=== PATIENT | female | born 1995 | race Hispanic/Latino ===

== ENCOUNTER 2018-04-01 15:52 | Emergency (ER) | payer OTHER ==
[2018-04-01 16:56] LABS: BASOPHILS % (AUTO) 0.3 % (0.0-5.0); EOSINOPHILS % (AUTO) 0.3 % (0.0-8.0); HEMATOCRIT 39.5 % (36-48); LYMPHOCYTES % (AUTO) 10.5 % (21.0-51.0); MEAN CORPUSCULAR VOLUME 94.3 fL (79-99); MONOCYTES % (AUTO) 2.2 % (3.0-13.0); NEUTROPHILS % (AUTO) 86.7 % (40.0-77.0); PLATELET COUNT (AUTO) 239 K/uL (130-400); RED BLOOD CELL COUNT(AUTO) 4.19 MIL/uL (4.00-5.50); RED CELL DISTRIBUTION WIDTH 12.6 % (11.0-15.5); WHITE BLOOD COUNT (AUTO) 9.7 K/uL (4.8-10.8)
[2018-04-01 17:06] LABS: CREATININE 0.5 mg/dL (0.5-1.5)
[2018-04-01 17:10] LABS: COLOR,URINE Yellow (YELLOW); PROTEIN,URINE Negative (NEGATIVE)
[2018-04-01] MEDS ORDERED: KETOROLAC TROMETHAMINE 30MG/ML ONE (17:10)
[2018-04-01] MEDS ORDERED: ONDANSETRON HCL 4 MG/2 ML VIAL ONE (17:10)
[2018-04-01 17:11] LABS: ALBUMIN 3.6 g/dL (3.5-5.0); BILIRUBIN,TOTAL 0.8 mg/dL (0.2-1.0); BILIRUBIN,URINE Negative (NEGATIVE); GLUCOSE, URINE (UA) Negative (NEGATIVE); KETONES,URINE Trace mg/dL (NEGATIVE); LEUKOCYTE ESTERASE ,URINE Negative (NEGATIVE); NITRATE,URINE Negative (NEGATIVE); OCCULT BLOOD,URINE Moderate (NEGATIVE); TOTAL PROTEIN, SERUM 8.4 g/dL (6.0-8.3)
[2018-04-01 17:13] LABS: APPEARANCE,URINE CLOUDY (CLEAR)
[2018-04-01 17:14] LABS: HCG,QUAL RESULT NEGATIVE (NEGATIVE)
[2018-04-01 17:27] LABS: BACTERIA,URINE Few /HPF (None Seen); SQUAMOUS EPITHELIAL CELL,UR Moderate /HPF (0-2); WBC,URINE 0-1 /HPF (0-1); YEAST,URINE BUDDING Rare /HPF (None Seen)
== END 2018-04-01 18:28 | disposition home or self-care (01) ==
LOC: EDH 15:52
DX: K76.0 Fatty (change of) liver, not elsewhere classified (principal); R10.11 Right upper quadrant pain
CPT/HCPCS: 36415; 76705; 80053; 81001; 81025; 82150; 83690; 85025; 96374; 96375; 99285; J1885; J2405

== ENCOUNTER 2018-08-17 20:51 | Emergency (ER) | payer SELFPAY ==
[2018-08-17] MEDS ORDERED: ACETAMINOPHEN EXTRA STRENGTH 500 MG TABLET ONE (21:15)
[2018-08-17 21:56] LABS: RAPID GROUP A STREP NEGATIVE (NEGATIVE)
[2018-08-17] MEDS ORDERED: KETOROLAC TROMETHAMINE 60 MG/2 ML VIAL ONE (22:15)
== END 2018-08-17 22:30 | disposition home or self-care (01) ==
LOC: EDH 20:51
DX: J09.X2 Influenza due to identified novel influenza A virus with other respiratory manifestations (principal)
CPT/HCPCS: 81025; 87804 ×2; 87880; 96372; 99283; J1885

== ENCOUNTER 2020-05-21 11:14 | Emergency (ER) | payer SELFPAY ==
[2020-05-21] MEDS ORDERED: HYDROCODONE/ACETAMINOPHEN 10/325 MG TAB ONE (13:22)
== END 2020-05-21 14:27 | disposition home or self-care (01) ==
LOC: EDH 11:14
DX: S82.62XA Displaced fracture of lateral malleolus of left fibula, initial encounter for closed fracture (principal); X58.XXXA Exposure to other specified factors, initial encounter; Y93.89 Activity, other specified; Y92.89 Other specified places as the place of occurrence of the external cause; Y99.8 Other external cause status
CPT/HCPCS: 29515; 73610; 81025

== ENCOUNTER 2025-02-09 23:44 | Emergency (ER) | payer BC ==
[~2025-02-09] VITALS: Ht 157.5 cm; Wt 114.3 kg
--- NOTE | 2025-02-09 23:55 | ERN ---
ED Note History of Present Illness Stated Complaint: C/O RUQ PAIN ONSET 3-4 DAYS AGO Chief Complaint: Abdominal Pain Time Seen by MD: 23:46 Time Seen by Midlevel: 23:50 Dictation: 30 y/oFemale coming in with complaints of right upper quadrant pain for the last 2-3 weeks worsening in the last four days. Denies any fever, nausea and vomiting or diarrhea. Patient states pain is worse when he takes a deep breath. Allergies: Coded Allergies: No Known Drug Allergies (Unverified Allergy, Unknown, 05/21/20) Past Medical History Past Medical History: No Pertinent History Surgical History: None LMP: Feb 22, 2025 Review of System Dictation Constitutional: Negative for fever,chills, and weight loss Eyes: Negative for injury, pain,redness, and discharge ENT: Negative for injury,pain or swelling Cardiovascular: Negative for chest pain, palpitations, and edema Respiratory: Negative for shortness of breath, cough, and wheezing, Abdomen/GI: Complaining of right upper quadrant pain Back: Negative for injury and pain : Negative for injury, bleeding and discharge MS/Extremity: Negative for injury and deformity Skin: Negative for rash, and discoloration Neuro: Negative for headache, weakness, numbness, tingling, and seizure Psych: Negative for suicide ideation, homicidal ideation, and hallucinations Review of Systems: was completed Initial Vital Sign VS Vital Signs Date Time Temp Pulse Resp B/P (MAP) Pulse Ox O2 Delivery O2 Flow Rate FiO2 02/09/25 23:45 98.8 77 20 181/85 100 Room Air 02/10/25 00:08 0 21 Physical Exam Dictation General: awake, alert, NAD Head/Face: Normocephalic, atraumatic Eyes: PERRL, EOMI, vision at baseline ENT: oral cavity clear, TMs clear, no signs of infection Neck: Trachea midline, supple, no nuchal rigidity Cardiovascular: RRR, normal S1/S2, No MRGs, no JVD Respiratory: CTAB, no respiratory distress, No rales or wheezes Abdomen: Soft, tenderness on palpation to the right upper quadrant, non- distended, normal bowel sounds, no guarding or rebound. Skin: Warm, dry, normal turgor, no rash MS/Extremity: Pulses equal, no cyanosis, neurovascular intact, FROM Neuro: COAx4, GCS 15, strength 5/5, CN 2-12 intact, normal cerebellar exam, nor mal gait, Psych: Normal behavior, mood, and affect normal Results (Laboratory/Radiology) Laboratory/Radiology Laboratory Tests Test 02/10/25 00:00 White Blood Count 9.2 K/uL (4.8-10.8) Red Blood Count 4.28 MIL/uL (4.00-5.50) Hemoglobin 13.7 g/dL (12.0-16.0) Hematocrit 39.2 % (36-48) Mean Corpuscular Volume 91.6 fL (79-99) Mean Corpuscular Hemoglobin 32.0 pg (27.0-33.0) Mean Corpuscular Hemoglobin Concent 34.9 g/dL (32.0-36.0) Red Cell Distribution Width 12.3 % (11.0-15.5) Platelet Count 243 K/uL (130-400) Mean Platelet Volume 9.1 fL (7.5-10.5) Immature Granulocyte % (Auto) 0.2 % (0-1) Neutrophils (%) (Auto) 47.6 % (40.0-77.0) Lymphocytes (%) (Auto) 44.8 % (21.0-51.0) Monocytes (%) (Auto) 4.9 % (3.0-13.0) Eosinophils (%) (Auto) 2.2 % (0.0-8.0) Basophils (%) (Auto) 0.3 % (0.0-5.0) Neutrophils # (Auto) 4.4 K/uL (1.8-7.7) Lymphocytes # (Auto) 4.1 K/uL (1.0-4.8) Monocytes # (Auto) 0.5 K/uL (0.1-1.0) Eosinophils # (Auto) 0.20 K/uL (0.00-0.70) Basophils # (Auto) 0.03 K/uL (0.00-0.20) Absolute Immature Granulocyte (auto 0.02 K/uL (0-1) Nucleated Red Blood Cells 0.0 % (0.0-0.19) Sodium Level 139 mmol/L (136-145) Potassium Level 3.6 mmol/L (3.5-5.1) Chloride Level 101 mmol/L (101-111) Carbon Dioxide Level 32 mmol/L (21-32) Blood Urea Nitrogen 14 mg/dL (7-18) Creatinine 0.6 mg/dL (0.5-1.0) Glomerular Filtration Rate Calc 124 mL/min (>90) Random Glucose 95 mg/dL (70-105) Total Calcium 8.9 mg/dL (8.5-10.1) Total Bilirubin 0.2 mg/dL (0.2-1.0) Direct Bilirubin 0.1 mg/dL (0.0-0.3) Aspartate Amino Transf (AST/SGOT) 21 U/L (10-37) Alanine Aminotransferase (ALT/SGPT) 41 U/L (12-78) Alkaline Phosphatase 88 U/L (50-136) Total Protein 8.6 g/dL (6.0-8.3) H Albumin 3.9 g/dL (3.5-5.0) Lipase 37 U/L (16-77) Human Chorionic Gonadotropin, Quant 0 mIU/mL (0-5) Labs Reviewed?: Yes Ultrasound Comment: [address] [address] IMAGING REPORT Signed PATIENT: MEGAN TOLBERT MR#: [id number] : 1995 SEX: F AGE: 30 LOCATION: [facility] ORDER [id number] STATUS: [facility] REPORT#: [id number] SERVICE [id number] REASON: ruq pain ORDERING PHYSICIAN: PAU OLGUIN NP PROCEDURE: ABDRUQLTD - US ABDOMINAL RUQ\LTD EXAM: US Abdomen, Right Upper Quadrant. CLINICAL HISTORY: Right upper quadrant pain. TECHNIQUE: Right upper quadrant sonography performed with image documentation. The exam was somewhat limited as the patient was not NPO and unable to hold breath. COMPARISON: None provided. FINDINGS: LIVER: Measures approximately 17.1 cm. Increased echogenicity consistent with hepatic steatosis. No focal hepatic lesion identified. GALLBLADDER: The gallbladder wall measures approximately 2 mm. A possible tiny sand-like stone is noted. No wall thickening. COMMON BILE DUCT (CBD): Measures approximately 5 mm. Not dilated. PANCREAS: Visualized portions appear normal. Tail obscured by bowel gas. RIGHT KIDNEY: Measures 11.6 ??? 5.2 ??? 5.1 cm. Normal cortical thickness and echogenicity. No hydronephrosis, mass, or calculus. IMPRESSION: Hepatic steatosis. Gallbladder with a possible tiny sand-like stone. No wall thickening or biliary dilatation. Otherwise unremarkable right upper quadrant ultrasound. /[place] DICTATED BY: BLAKE COBB Jr., MD DATE: 02/10/25158 ELECTRONICALLY SIGNED BY: BLAKE COBB Jr., MD DATE: 02/10/25158 ED Course ED Course Orders Procedure Category Date Status Time Cbc With Differential LAB 02/09/25 Complete 23:49 Basic Metabolic Panel LAB 02/09/25 Complete 23:49 Lipase LAB 02/09/25 Complete 23:49 Us Abdominal Ruq\Ltd US 02/09/25 Resulted 23:49 Hepatic Function Panel LAB 02/09/25 Complete 23:49 0.9%Nacl 1000ml (Ns PHA 02/09/25 Complete 1000ml) 23:49 Ketorolac PHA 02/10/25 Complete Tromethamine 15mg/Ml 00:00 Ondansetron 4mg Inj PHA 02/10/25 Complete (Zofran 4mg Inj) 00:00 Famotidine 20mg Vial PHA 02/10/25 Complete (Pepcid 20mg Vial) 00:00 Hcg,Quantitative LAB 02/10/25 Complete 00:44 Chest 1vw RAD 02/10/25 Taken 00:52 Current Medications Medications (Trade) Dose Ordered Sig/Yessenia Route PRN Reason Start Time Stop Time Status Last Admin Dose Admin Famotidine (Pepcid 20mg Vial) 20 mg ONCE ONCE IV 02/10/25 00:00 02/10/25 00:02 DC 02/10/25 00:07 Ketorolac Tromethamine (toRADol) 15 mg ONCE ONCE IV 02/10/25 00:00 02/10/25 00:02 DC 02/10/25 00:07 Ondansetron HCl (zoFRAN 4MG INJ) 4 mg ONCE ONCE IVP 02/10/25 00:00 02/10/25 00:02 DC 02/10/25 00:07 Sodium Chloride 1,000 ml @ 1,000 mls/hr Q1H STAT IV 02/09/25 23:49 02/10/25 00:48 DC 02/10/25 00:08 Vital Signs Date Time Temp Pulse Resp B/P (MAP) Pulse Ox O2 Delivery O2 Flow Rate FiO2 02/10/25 00:08 98.6 72 18 155/94 99 Room Air* 0 21 02/09/25 23:45 98.8 77 20 181/85 100 Room Air Medical Decision Making MDM MDM: 30 y/oFemale coming in with complaints of right upper quadrant pain for the last 2-3 weeks worsening in the last four days. Denies any fever, nausea and vomiting or diarrhea. Patient states pain is worse when he takes a deep breath.CBC shows no leukocytosis, no anemia, no thrombocytopenia. Chemistry shows no electrolyte abnormality. No transaminitis. Lipase within normal range. Preliminary report for the ultrasound shows a gallbladder wall measuring 2 mm, mobile sandlike stone and a CBD of 5 mm. Chest x-ray shows no acute finding. Discussed with the patient findings, educated in his might be related to gallbladder sludge, stones. Needs to avoid any spicy, greasy foods and follow up with PCP outpatient at this time . Differential diagnosis: Acute otitis, gastritis, gallstones, cholecystitis Rationale: Tests considered and ordered secondary to shared decision making include: Previous outside records reviewed: Old ER visits. Risk of complication and/or morbidity or mortality of patient management: None Medications-Per medication reconciliation Need for hospitalization: Patient does not meet criteria for hospitalization. Need for emergency major/minor surgery: No There are no social concerns with this patient. Prescription drug management Prescriptions will include symptomatic care Patient's prior external medical records from other ER visits were reviewed by me as indicated. Prior testing and results from previous visits were reviewed. Prior tests were taken into account with medical decision making and resource utilization, independent historian/historians were used to obtain complete medical history. I independently interpreted the test that were performed, results were reviewed by me and considered findings on radiology if ordered. Medical management and examination interpretation discussions were had by me with other qualified healthcare professionals as indicated for the patient's care. DX & DISP Disposition: Discharge Departure Impression: Primary Impression: Cholelithiasis Additional Impression: Biliary colic Condition: Stable Scripts Ketorolac Tromethamine (Ketorolac Tromethamine) 10 Mg Tablet 3 TAB PO Q6HPRN PRN for pain for 3 Days, #12 TAB 0 Refills Prov: PAU OLGUIN NP 02/10/25 Additional Instructions: Avoid eating any spicy, greasy, fatty foods. Follow up with your PCP in 1-2 days. Return to the hospital if you have any worsening condition. Referrals: SELF,REFERRAL (PCP) MARTY AMIN MD Time of Disposition: 02:12 I have reviewed the case, and I agree with, Diagnosis and Plan PAU OLGUIN NP Feb 09, 2025 23:55
[2025-02-10] MEDS: FAMOTIDINE 20MG VIAL IV ONE (00:07)
[2025-02-10] MEDS: 0.9%NACL 1000ML 1,000 ML IV STA (00:08)
[2025-02-10 00:24] LABS: CREATININE 0.6 mg/dL (0.5-1.0); GLOMERULAR FILTR. RATE CALC 124.0 mL/min (>90); GLUCOSE,RANDOM 95.0 mg/dL (70-105); SODIUM SERUM 139.0 mmol/L (136-145); UREA NITROGEN, BLOOD 14.0 mg/dL (7-18)
[2025-02-10 00:28] LABS: ASPARTATE AMINOTRANSFERASE 21.0 U/L (10-37); TOTAL PROTEIN, SERUM 8.6 g/dL (6.0-8.3)
[2025-02-10 00:29] LABS: IMMATURE GRANULOCYTE ABSOLUTE 0.02 K/uL (0-1); NUCLEATED RED BLOOD CELLS 0.0 % (0.0-0.19); PLATELET COUNT (AUTO) 243 K/uL (130-400); RED BLOOD CELL COUNT(AUTO) 4.28 MIL/uL (4.00-5.50); RED CELL DISTRIBUTION WIDTH 12.3 % (11.0-15.5); WHITE BLOOD COUNT (AUTO) 9.2 K/uL (4.8-10.8)
--- NOTE | 2025-02-10 01:00 | HMCIMG ---
EXAM: US Abdomen, Right Upper Quadrant. CLINICAL HISTORY: Right upper quadrant pain. TECHNIQUE: Right upper quadrant sonography performed with image documentation. The exam was somewhat limited as the patient was not NPO and unable to hold breath. COMPARISON: None provided. FINDINGS: LIVER: Measures approximately 17.1 cm. Increased echogenicity consistent with hepatic steatosis. No focal hepatic lesion identified. GALLBLADDER: The gallbladder wall measures approximately 2 mm. A possible tiny sand-like stone is noted. No wall thickening. COMMON BILE DUCT (CBD): Measures approximately 5 mm. Not dilated. PANCREAS: Visualized portions appear normal. Tail obscured by bowel gas. RIGHT KIDNEY: Measures 11.6 ??? 5.2 ??? 5.1 cm. Normal cortical thickness and echogenicity. No hydronephrosis, mass, or calculus. IMPRESSION: Hepatic steatosis. Gallbladder with a possible tiny sand-like stone. No wall thickening or biliary dilatation. Otherwise unremarkable right upper quadrant ultrasound. /[place]
--- NOTE | 2025-02-10 02:10 | HMCIMG ---
EXAM: CR Chest, 1 view CLINICAL HISTORY: Shortness of breath. COMPARISON: None provided. FINDINGS: The lungs show no infiltrates or other acute findings. No pleural effusion or pneumothorax. The cardiomediastinal silhouette is within normal limits. No acute osseous abnormality. IMPRESSION: No acute cardiopulmonary process is evident. /[place]
[2025-02-10] MEDS ORDERED: KETO10TA2 PO (02:12)
[2025-02-10 02:23] VITALS: BP 136/86; PULSE 6; RESP 18; TEMP 98.4; O2SAT 100
== END 2025-02-10 02:24 | disposition home or self-care (01) ==
LOC: EDH 23:44
DX: K80.20 Calculus of gallbladder without cholecystitis without obstruction (principal); R10.2 Pelvic and perineal pain
CPT/HCPCS: 99284; 76705; 80076; 80048; 84702; 83690; 85025; 36415; 96374; 96375; 71045; 96361; J1885; J3490; J7030; J2405